=== PATIENT | female | born 1955 | race Hispanic/Latino ===

== ENCOUNTER → 2016-11-06 | Day surgery (SDC) | payer OTHER ==
[~2016-11-06] VITALS: Ht 162.6 cm; Wt 108.9 kg
[~2016-11-06] MED LIST: 0.9% Sodium Chloride 1,000 ML IV SCH; MELO7.5O PO; Sodium Chloride LOK Flush 10 mL Syringe IV PRN; fentaNYL-PF 50 mCg/mL 2 mL Inj IVPUSH PRN
[2016-11-06 12:15] VITALS: BP 109/59; PULSE 68; O2SAT 95
--- NOTE | 2016-11-06 12:55 | PCM.ENDCOL ---
Colonoscopy Date of Service: Nov 06, 2016 Physician Yeyo Cardenas MD Pre Procedure Diagnosis: Positive FIT test Post Procedure Dx & Findings: Polyp hemorrhoids diverticuli Procedure Colonoscopy PROCEDURE IN DETAIL: Prep adequate Withdrawal time 10 minutes After unremarkable rectal examination the Olympus video colonoscope was inserted patient's anal canal and was advanced to cecum. Landmarks were identified including the ileocecal valve and appendiceal orifice. Scope was withdrawn systematically. Visualized colonic mucosa showed healthy shiny mucosa with normal healthy-appearing vasculature. Indications transverse colon, there was a 3 mm polyp which was removed completely using cold snare. In the rectum there was a 2 mm polyp which was removed completely using cold snare. In the sigmoid colon and to the transverse colon, small to medium sized diverticuli noted. However there were mostly in the sigmoid colon. In the rectum retroflexion was done which showed hemorrhoids. Anal canal was inspected carefully on the way out and hemorrhoids noted. Impression Polyp 2 status post complete removal Diverticula Hemorrhoids Recommendation Repeat colonoscopy 5 years Diverticular diet Presedation Assessment Risks and Benefits Informed consent was obtained from the patient after all risks and benefits including but not limited to drug reaction, infection, pain, bleeding, perforation, as well as alternatives were discussed. Patient monitoring Continuous pulse oximetry, cardiac monitoring, blood pressure monitoring, IV access, and oxygen at 2L per nasal cannula. Periprocedural Fentanyl: Fentanyl 150mcg Incrementally Midazolam: Midazolam 7mg Incrementally Complications There were no periprocedural complications identified. Post Procedure Plan Post Procedure Recommendations 1. Restrict activities today. 2. Resume normal activities in the morning. 3. Resume medications. 4. Patient informed of normal post procedure side effects as bloating, drowsiness, blood streaking in the stool. 5. average risk CRCS. If colon polyps come back as: -Hyperplastic- can repeat colonoscopy in 10 years -Tubular adenoma- repeat colonoscopy in 5 years -Tubulovillous/villous adenoma- repeat colonoscopy in 3 years -If any dysplasia- return to clinic as soon as possible 6. Please don't hesitate to call me with any questions. Yeyo Cardenas MD Nov 06, 2016 12:55
[2016-11-06 12:59] VITALS: BP 103/60; PULSE 63; RESP 14; O2SAT 93
[2016-11-06 13:09] VITALS: BP 98/59; PULSE 58; RESP 16; O2SAT 95
[2016-11-06 13:19] VITALS: BP 104/65; PULSE 62; RESP 16; O2SAT 95
--- NOTE | 2016-11-08 12:15 | PATH ---
SURGICAL PATHOLOGY Attending Physician:Yeyo Cardenas M.D. CASE STATUS: Signed Out PATIENT NAME: SHOLA SALES PID: [id number] : 1955 DATE COLLECTED:11/06/2016 20:29 SPECIMEN: 1: Colon, Polyp 2: Rectum, Biopsy CLINICAL HISTORY: 1). TRANSVERSE POLYP 2). RECTAL POLYP FINAL DIAGNOSIS: 1.TRANSVERSE COLON POLYP, BIOPSY: SESSILE SERRATED ADENOMA. 2.RECTAL POLYP, BIOPSY: RECTAL MUCOSA WITH A HYPERPLASTIC LYMPHOID FOLLICLE. Negative for serrated lesion, adenoma, dysplasia and malignancy. ICD10 D12.6 GROSS DESCRIPTION: The specimen is received in two formalin filled containers labeled with the patient's name. 1). The specimen is labeled "transverse polyp" and consists of a 0.3 x 0.2 x 0.2 CM portion of tissue which is entirely submitted in cassette 1A. 2). The specimen is labeled "rectal polyp" and consists of a 0.3 x 0.3 x 0.2 CM portion of tissue which is entirely submitted in cassette 2A. 11/06/2016DC MICRO DESCRIPTION: See diagnosis. ICD-9 CODES: CPT CODES: 1: 20409 2: 08658 Electronically Signed Out Domingo Keita MD, PhD [facility], [place] [address] Technical component performed at [facility], [facility] [address], [place], [address]
== END | disposition home or self-care (01) ==
LOC: END 00:25
PROVIDERS: ATTEND Internal Medicine
DX: Z12.11 Encounter for screening for malignant neoplasm of colon (principal); Z80.0 Family history of malignant neoplasm of digestive organs; D12.3 Benign neoplasm of transverse colon; K62.1 Rectal polyp; K57.30 Diverticulosis of large intestine without perforation or abscess without bleeding; K64.9 Unspecified hemorrhoids; R19.5 Other fecal abnormalities; E66.01 Morbid (severe) obesity due to excess calories; Z68.41 Body mass index [BMI] 40.0-44.9, adult
CPT/HCPCS: 45385; 99153; G0500; J2250; J3010; J7030